=== PATIENT | male | born 1995 | race Asian ===

== ENCOUNTER 2023-03-27 05:16 | Emergency (ER) | payer BC ==
[2023-03-27] MEDS ORDERED: Ketorolac Tromethamine 30 MG/ML VIAL ONE (05:35)
[2023-03-27] MEDS ORDERED: Ondansetron PF 4 MG/2 ML Vial ONE ×2 (05:35→10:42)
[2023-03-27 05:49] LABS: Hemoglobin 15.9 g/dL (13.5-17.5); Mean Corpuscular Hemoglobin 30.2 pg (27.0-33.0); Mean Corpuscular Volume 88.8 fl (81.2-95.1); Mean Platelet Volume 9.3 fl (7.4-10.4); Platelet Count 288 10x3/uL (150-450); RBC Distribution Width 11.8 % (11.5-14.5); Red Blood Cell (RBC) Count 5.27 10x6/uL (4.32-5.72); White Blood Cell (WBC) Count 20.7 10x3/uL (3.5-10.5)
[2023-03-27 05:54] LABS: MDiff Complete? YES
[2023-03-27 05:57] LABS: Bilirubin Neg (Negative); Blood, Urine 25 (Negative); Clarity Clear (Clear); Glucose, Urine (Dipstick) Normal (Negative); Ketone, Urine 15 mg/dL (Negative); Leukocyte Negative (Negative); Nitrite Negative (Negative); Protein, Urine (Dipstick) 15 mg/dl (Neg-Trace); Specific Gravity, Urine 1.015 (1.005-1.030); Urobilinogen Normal mg/dL (Less than 2)
[2023-03-27 06:04] LABS: Bacteria/HPF None Seen HPF (None Seen); RBC/HPF 0-3 HPF (0-3); Squamous Epithelial None Seen HPF (0-3); WBC/HPF 0-3 HPF (0-3)
[2023-03-27 06:05] LABS: ALT (SGPT) 27 U/L (8-55); AST (SGOT) 16 U/L (5-34); Albumin 4.8 g/dL (3.5-5.0); Alkaline Phosphatase 56 U/L (40-110); Anion Gap 19 mmol/L (10-20); BUN (Urea Nitrogen) 17 mg/dL (8.9-20.6); Bilirubin, Total 0.6 mg/dL (0.2-1.2); Calc. Creatinine Clearance 0 mL/min (70-130); Calcium 9.8 mg/dL (7.8-10.44); Carbon Dioxide 20 mmol/L (22-29); Chloride 101 mmol/L (98-107); Estimated GFR 89; Globulin 2.9 g/dL (2.4-3.5); Glucose 122 mg/dL (70-105); Lipase 7 U/L (8-78); Potassium 3.4 mmol/L (3.5-5.1); Protein, Total 7.7 g/dL (6.0-8.3); Sodium 137 mmol/L (136-145)
[2023-03-27 06:12] LABS: Band 7 % (5-11); Lymphocytes 12 % (21-51); Monocytes 8 % (0-10); Neutrophil 73 % (42-75)
[2023-03-27 06:13] LABS: Platelet Morphology Comment Appears Adequate; RBC Morphology Normal
[2023-03-27] MEDS ORDERED: Piperacillin/Tazobactam 3.375 GM VIAL ONE (07:04)
[2023-03-27] MEDS ORDERED: Bupivacaine/Epinephrine 0.25% 30 ML VIAL ONE (09:35)
[2023-03-27] MEDS ORDERED: HYDROmorphone 0.5 MG/0.5 ML SYRINGE ONE (10:27)
[2023-03-27] MEDS ORDERED: Fentanyl 100 MCG/2 ML VIAL ONE ×2 (10:28→12:13)
[2023-03-27] MEDS ORDERED: Midazolam HCl 2 mg/2 ml Vial ONE (10:28)
[2023-03-27] MEDS ORDERED: PROPOFOL 20 ML ONE (10:28)
[2023-03-27] MEDS ORDERED: Glycopyrrolate 0.2 MG/ML 5 ML SYRINGE ONE (10:42)
[2023-03-27] MEDS ORDERED: Dexamethasone 20 MG/5 ML VIAL ONE (10:42)
[2023-03-27] MEDS ORDERED: Acetaminophen/Codeine 30-300mg Tablet PO PRN (11:37)
[2023-03-27] MEDS ORDERED: HYDROcodone/Acetaminophen 5/325 mg Tablet ONE (12:58)
== END 2023-03-27 09:57 | disposition admitted as inpatient to this hospital (09) ==
LOC: CSHERS 05:16
DX: K35.80 Unspecified acute appendicitis (principal)
CPT/HCPCS: 74177; 80053; 81003; 81015; 83690; 85025; 88304; 96374; 96375; A4649; J1100; J1170; J1885; J2250; J2405; J2543; J2704; J3010